=== PATIENT | female | born 1990 | race Caucasian/White ===

== ENCOUNTER 2019-05-19 05:29 | Inpatient (IN) ==
[2019-05-19] MEDS ORDERED: LACTATED RINGERS 500 ML IV PRN (05:56)
[2019-05-19] MEDS ORDERED: BUTORPHANOL 2 MG/ML VIAL IV PRN (05:56)
[2019-05-19] MEDS ORDERED: ONDANSETRON 4 MG/2 ML VIAL IV PRN ×2 (05:56→11:27)
[2019-05-19] MEDS ORDERED: LACTATED RINGERS 1,000 ML IV SCH (06:00)
[2019-05-19] MEDS ORDERED: AMPICILLIN 2,000 MG VIAL ONE (06:21)
[2019-05-19 06:23] LABS: Basophils # 0.1 10*3/uL (0.0-0.2); Basophils % 0.3 % (0.0-0.8); Hematocrit 37.6 VOL% (35.7-47.0); Hemoglobin 12.1 GM/DL (12.0-16.0); Immature Granulocytes % 1.5 %; Immature Granulocytes Absolute 0.38 #; Lymphocytes # 2.1 10*3/uL (1.4-4.0); Lymphocytes % 8.3 % (21.3-54.2); Mean Corpuscular HGB Conc 32.2 GM/DL (32-36); Mean Corpuscular Volume 91.3 FL (87-102); Mean Platelet Volume 10.6 FL (9.6-12.0); Monocytes % 6.3 % (1.7-12.7); Neutrophils % 83.6 % (38.7-73.9); Platelet Count 280 T/CUMM (130-400); Red Blood Count 4.12 MC/CUMM (3.8-5.5); Red Cell Distribution Width 12.9 % (9.3-17.3); White Blood Count 25.3 T/CUMM (4-12)
[2019-05-19 06:24] LABS: Apearance,Urine CLOUDY (Clear); Bacteria,Urine Occasional /HPF (Few); Bilirubin,Urine Negative (Negative); Blood, Urine Small mg/dL (Negative); Glucose,Urine (UA) Negative (Negative); Ketones,Urine Negative (Negative); Mucus,Urine Occasional /LPF (Occasional); Nitrite,Urine Negative (Negative); Protein,Urine Negative; RBC,Urine <1 /HPF (0-4); Squamous Epithelial Cell,Urine Occasional /HPF (0-10); Urine Color Straw (Yellow); Urine Specific Gravity 1.005 (1.001-1.035); Urine Urobilinogen < 2.0 EU/DL (0.2-1.0); WBC,Urine 3 /HPF (0-6)
[2019-05-19] MEDS ORDERED: AMPICILLIN INJ 2,000 MG in SODIUM CHLORIDE 0.9% 100 ML IV SCH (06:30)
[2019-05-19] MEDS ORDERED: CITRIC ACID/SODIUM CITRATE 30 ML UDCUP ONE (06:40)
[2019-05-19] MEDS ORDERED: TERBUTALINE 1 MG/1 ML VIAL SUBCUT ONE ×2 (06:43→07:02)
[2019-05-19 06:45] LABS: Lymphocytes 7 % (20-55); Platelet Estimate Normal; Segmented Neutrophils 90 % (50-85); Total Cells Counted 100
[2019-05-19 06:46] LABS: Polychromasia Few
[2019-05-19] MEDS ORDERED: OXYTOCIN/LR 20 UNIT/1,000 ML BAG IV ONE ×2 (06:53→09:17)
[2019-05-19] MEDS ORDERED: miSOPROStol 200 MCG TABLET ONE (06:55)
[2019-05-19] MEDS ORDERED: TRANEXAMIC ACID 1,000 MG/10 ML VIAL ONE (06:55)
[2019-05-19] MEDS ORDERED: METHYLERGONOVINE 0.2 MG/1 ML AMP ONE (06:57)
[2019-05-19] MEDS ORDERED: ERYTHROMYCIN INJ 500 MG in SODIUM CHLORIDE 0.9% 100 ML IV SCH (07:00)
[2019-05-19] MEDS ORDERED: ceFAZolin 2,000 MG in PREMIX 1 EACH IV ONE (07:00)
[2019-05-19] MEDS ORDERED: MAGNESIUM SULF RIDER 100 ML IV ONE ×2 (07:05→07:29)
[2019-05-19] MEDS ORDERED: MAGNESIUM SULF DRIP 40 GM/1,000 ML ML IV ONE (07:05)
[2019-05-19] MEDS ORDERED: FAMOTIDINE 20 MG/2 ML VIAL IV ONE (07:59)
[2019-05-19 08:08] LABS: Cord Arterial Blood HCO3 23.4 MMOL/L
[2019-05-19 08:10] LABS: Cord Venous Blood HCO3 20.8 MMOL/L; Cord Venous Blood PCO2 31.4 MMHG; Cord Venous Blood PO2 35.4 MMHG
[2019-05-19 08:11] LABS: Alanine Aminotransferase 19 U/L (13-56); Alkaline Phosphatase 73 U/L (45-117); Aspartate Amino Transferase 7 U/L (0-37); Bilirubin,Total < 0.39 MG/DL (0.2-1.0); Blood Urea Nitrogen 8 MG/DL (7-18); Calcium 9.5 MG/DL (8.5-10.1); Glucose 98 MG/DL (74-106); Osmolality,Calculated 274.5 MOS/KG (273-304); Total Protein 6.8 G/DL (6.4-8.3)
[2019-05-19] MEDS ORDERED: PHENYLEPHRINE 1 MG/10 ML SYRINGE IV ONE (08:51)
[2019-05-19] MEDS ORDERED: ePHEDrine 50 MG/ML AMP ONE (08:51)
[2019-05-19] MEDS ORDERED: BUPIVACAINE SPINAL 0.75% 2 ML AMP SPINAL ONE (08:52)
[2019-05-19] MEDS ORDERED: HYDROmorphone 2 MG/1 ML VIAL IV PRN (09:10)
[2019-05-19] MEDS ORDERED: HYDROmorphone 2 MG/1 ML VIAL IV SCH (09:30)
[2019-05-19] MEDS ORDERED: HYDROmorphone 2 MG/1 ML VIAL IV ONE (10:15)
[2019-05-19 11:19] LABS: HIV Antigen/Antibody Result Nonreactive (Nonreactive); Hepatitis B Surface Ag Quant < 0.10 Index; Hepatitis B Surface Ag Result Negative (Negative); Rubella Antibody IgG 12.7 IU/ML
[2019-05-19] MEDS ORDERED: SIMETHICONE CHEW 80 MG TABLET PO PRN (11:27)
[2019-05-19] MEDS ORDERED: ACETAMINOPHEN 325 MG TABLET PO PRN (11:27)
[2019-05-19] MEDS ORDERED: MAGNESIUM HYDROXIDE SUSP 30 ML UDCUP PO PRN (11:27)
[2019-05-19] MEDS ORDERED: CARBOPROST TROMETHAMINE 250 MCG/ML AMP IM ONE (12:09)
[2019-05-19] MEDS: IBUPROFEN 800 MG TABLET PO PRN ×2 (12:24→20:22)
[2019-05-19 15:48] LABS: Basophils # 0.1 10*3/uL (0.0-0.2); Basophils % 0.2 % (0.0-0.8); Hematocrit 28.5 VOL% (35.7-47.0); Immature Granulocytes % 1.1 %; Immature Granulocytes Absolute 0.28 #; Lymphocytes # 2.5 10*3/uL (1.4-4.0); Lymphocytes % 10.1 % (21.3-54.2); Mean Corpuscular HGB Conc 32.3 GM/DL (32-36); Mean Corpuscular Volume 91.9 FL (87-102); Mean Platelet Volume 10.7 FL (9.6-12.0); Monocytes % 8.3 % (1.7-12.7); Neutrophils % 80.3 % (38.7-73.9); White Blood Count 24.7 T/CUMM (4-12)
[2019-05-19 15:51] LABS: Hemoglobin 9.2 GM/DL (12.0-16.0); Platelet Count 223 T/CUMM (130-400)
[2019-05-19 16:13] LABS: Anisocytosis Slight; Lymphocytes 13 % (20-55); Macrocytosis Slight; Microcytosis Slight; Platelet Estimate Normal; Polychromasia Slight; Segmented Neutrophils 83 % (50-85); Total Cells Counted 100
[2019-05-19] MEDS: DOCUSATE SODIUM 100 MG CAPSULE PO SCH (20:21)
[2019-05-20 05:43] LABS: Basophils % 0.2 % (0.0-0.8); Eosinophils # 0.1 10*3/uL (0.0-0.87); Eosinophils % 0.4 % (0.00-10.9); Hematocrit 27.8 VOL% (35.7-47.0); Hemoglobin 8.8 GM/DL (12.0-16.0); Immature Granulocytes Absolute 0.16 #; Lymphocytes # 2.6 10*3/uL (1.4-4.0); Lymphocytes % 15.4 % (21.3-54.2); Mean Corpuscular HGB Conc 31.7 GM/DL (32-36); Mean Corpuscular Volume 93.9 FL (87-102); Mean Platelet Volume 10.8 FL (9.6-12.0); Monocytes % 10.6 % (1.7-12.7); Neutrophils % 72.4 % (38.7-73.9); Platelet Count 223 T/CUMM (130-400); Red Blood Count 2.96 MC/CUMM (3.8-5.5); Red Cell Distribution Width 13.2 % (9.3-17.3); White Blood Count 16.8 T/CUMM (4-12)
[2019-05-20] MEDS: IBUPROFEN 800 MG TABLET PO PRN ×2 (07:35→17:24)
[2019-05-20] MEDS: MULTIVITAMIN (PRENATAL) TABLET PO SCH (09:08)
[2019-05-20] MEDS: DOCUSATE SODIUM 100 MG CAPSULE PO SCH ×2 (09:08→21:13)
[2019-05-21] MEDS: IBUPROFEN 800 MG TABLET PO PRN ×2 (01:08→12:30)
[2019-05-21] MEDS: MULTIVITAMIN (PRENATAL) TABLET PO SCH (09:54)
[2019-05-21] MEDS: DOCUSATE SODIUM 100 MG CAPSULE PO SCH ×2 (09:54→21:35)
[2019-05-21 13:28] LABS: Hemoglobin 10.4 GM/DL (12.0-16.0)
[2019-05-21 15:09] LABS: Alanine Aminotransferase 17 U/L (13-56); Albumin 2.7 G/DL (3.4-5.0); Alkaline Phosphatase 70 U/L (45-117); Aspartate Amino Transferase 16 U/L (0-37); Bilirubin,Total < 0.39 MG/DL (0.2-1.0); Blood Urea Nitrogen 10 MG/DL (7-18); Calcium 9.1 MG/DL (8.5-10.1); Glucose 90 MG/DL (74-106); Total Protein 6.9 G/DL (6.4-8.3)
[2019-05-21 15:54] LABS: ABG Base Excess 1.8 MMOL/L (-2.5-2.5); ABG Oxygen Saturation 98.8 % (95-100); ABG PCO2 35.7 MM HG (35-48)
[2019-05-21 17:02] LABS: Free T4 (Free Thyroxine) 1.27 NG/DL (0.76-1.46); Thyroid Stimulating Hormone 2.2 uIU/ml (0.358-3.74)
[2019-05-21] MEDS: LORazepam 1 MG TABLET PO PRN (18:21)
[2019-05-21] MEDS: FERROUS SULFATE 325 MG TABLET PO SCH ×3 (18:38→21:35)
[2019-05-22] MEDS: IBUPROFEN 800 MG TABLET PO PRN (03:16)
[2019-05-22] MEDS: LORazepam 1 MG TABLET PO PRN (03:41)
[2019-05-22] MEDS: MULTIVITAMIN (PRENATAL) TABLET PO SCH (09:58)
[2019-05-22] MEDS: FERROUS SULFATE 325 MG TABLET PO SCH ×2 (09:59→17:57)
[2019-05-22] MEDS: DOCUSATE SODIUM 100 MG CAPSULE PO SCH (09:59)
[2019-05-22 12:14] VITALS: BP 118/64
[2019-05-22] MEDS ORDERED: DIPH/TET/ACEL PERT BOOSTER VACCINE 0.5 ML VIAL IM ONE ×2 (14:13→15:30)
== END 2019-05-22 17:10 | disposition home or self-care (01) | DRG 788 ==
LOC: N.LDOUT 05:29 → N.LD 05:31 → N.OB 12:12
PROVIDERS: ADMIT Obstetrics & Gynecology; ATTEND Obstetrics & Gynecology
PROC: LDCSECT (ICD-10-PCS; 2019-05-19 07:00)